=== PATIENT | female | born 1985 | race Caucasian/White ===

== ENCOUNTER 2018-02-21 11:26 | Outpatient (CLI) | payer OTHER | END 2018-02-21 11:57 | disposition home or self-care (01) | LOC: NST 11:26 | DX: Z34.03 Encounter for supervision of normal first pregnancy, third trimester (principal) ==

== ENCOUNTER 2018-02-21 15:00 | Inpatient (IN) | payer OTHER ==
[~2018-02-21] VITALS: Ht 157.5 cm; Wt 4.1 kg
[2018-03-05] MEDS ORDERED: PRENATABS RX T1 EACH PO (00:37)
== END 2018-03-07 15:28 | disposition home or self-care (01) | DRG 766 ==
LOC: EDUNIT# 15:00 → OB/GYN 02-25 15:00 → LDR 03-05 05:03 → OB/GYN 03-05 05:23
PROVIDERS: Obstetrics & Gynecology
PROC: 4A033R1 Measurement of Arterial Saturation, Peripheral, Percutaneous Approach (ICD-10-PCS; 2018-03-05)
PROC: 4A1HXCZ Monitoring of Products of Conception, Cardiac Rate, External Approach (ICD-10-PCS; 2018-03-05)
PROC: 10D00Z1 Extraction of Products of Conception, Low, Open Approach (ICD-10-PCS; principal; 2018-03-05 07:00)
DX: O76 Abnormality in fetal heart rate and rhythm complicating labor and delivery (principal); O99.824 Streptococcus B carrier state complicating childbirth; Z3A.39 39 weeks gestation of pregnancy; Z37.0 Single live birth

== ENCOUNTER 2018-03-05 00:12 | Outpatient (CLI) | payer OTHER ==
[2018-03-05] MEDS ORDERED: PRENATABS RX T1 EACH PO (00:37)
== END 2018-03-05 04:59 | disposition still patient (30) ==
LOC: OBS/DEL 00:12
DX: O47.1 False labor at or after 37 completed weeks of gestation (principal); Z34.03 Encounter for supervision of normal first pregnancy, third trimester

== ENCOUNTER 2019-07-17 06:11 | Day surgery (SDC) | payer OTHER ==
[~2019-07-17 06:11] MED LIST: PRENATABS RX T1 EACH PO
== END 2019-07-17 19:05 | disposition home or self-care (01) ==
LOC: CIR.AMB 06:11 → ADM 08:15 → CIR.AMB 14:15
DX: N72 Inflammatory disease of cervix uteri (principal)